=== PATIENT | female | born 1985 | race African-American/Black ===

== ENCOUNTER 2017-02-08 09:52 | Emergency (ER) | payer SELFPAY ==
[~2017-02-08] VITALS: Ht 162.6 cm; Wt 70.4 kg
[~2017-02-08 09:52] MED LIST: ARIP10TA8 PO; BENZ1TAB10 PO; NOCURR
[2017-02-08] MEDS ORDERED: ONDANSETRON HCL 4 MG/2 ML VIAL IVP ONE (11:00)
[2017-02-08 11:01] LABS: EOSINOPHILS # (AUTO) 0.01 K/uL (0.00-0.70); EOSINOPHILS % (AUTO) 0.09 % (1.0-6.0); HEMOGLOBIN 13.8 g/dL (12.0-16.0); LYMPHOCYTES % (AUTO) 7.2 % (22.0-44.0); MEAN CORPUSCULAR HEMOGLOBIN 27.5 pg (26.0-34.0); MEAN CORPUSCULAR HGB CONC 32.8 G/dL (31.0-37.0); MEAN CORPUSCULAR VOLUME 84 fL (80-100); MONOCYTES # (AUTO) 0.5 K/uL (0.1-1.0); MONOCYTES % (AUTO) 3.9 % (2.0-9.0); NEUTROPHILS # (AUTO) 12.1 K/uL (1.8-7.7); PLATELET COUNT (AUTO) 211 K/uL (150-450); RED BLOOD CELL COUNT(AUTO) 5.02 MIL/uL (4.00-5.20); WHITE BLOOD COUNT (AUTO) 13.6 K/uL (4.5-11.0)
[2017-02-08 11:06] LABS: ANION GAP 11 mmol/L (8-16); CALCIUM, TOTAL 9.2 mg/dL (8.8-10.5); CARBON DIOXIDE 27 mmol/L (22-29); CHLORIDE 99 mmol/L (98-107); CREATININE 0.88 mg/dL (0.60-1.30); GLOMERULAR FILTR. RATE CALC > 60 mL/min (>60); POTASSIUM 3.7 mmol/L (3.5-5.1); SODIUM SERUM 137 mmol/L (136-145); UREA NITROGEN, BLOOD 9 mg/dL (7-18)
[2017-02-08 11:07] LABS: NEUTROPHILS % (AUTO) 88.9 % (40.0-70.0)
[2017-02-08 11:12] LABS: ALANINE AMINOTRANSFERASE 20 U/L (12-78); ALBUMIN 3.8 g/dL (3.4-5.0); ASPARTATE AMINOTRANSFERASE 13 U/L (15-37); BILIRUBIN,TOTAL 0.3 mg/dL (0.1-1.0); TOTAL PROTEIN, SERUM 7.8 g/dL (6.4-8.2)
[2017-02-08] MEDS ORDERED: PROMETHAZINE HCL 25 MG TABLET PO ONE (12:45)
[2017-02-08] MEDS ORDERED: LORazepam 2 MG/ML VIAL IVP ONE (13:45)
[2017-02-08] MEDS ORDERED: SODIUM CHLORIDE 0.9% 1,000 ML IV ONE (13:45)
[2017-02-08 14:06] VITALS: BP 93/58
== END 2017-02-08 14:39 | disposition home or self-care (01) ==
LOC: EMS 09:54
DX: R19.7 Diarrhea, unspecified (principal)
CPT/HCPCS: 36415; 74022; 80053; 83690; 84703; 85025; 96361; 96374; 96375; 99285; J2060; J2405; J7030

== ENCOUNTER 2017-02-09 13:04 | Emergency (ER) | payer MEDICAID ==
[~2017-02-09] VITALS: Ht 162.6 cm; Wt 72.7 kg
[2017-02-09 15:10] LABS: BASOPHILS % (AUTO) 0.4 % (0.0-2.0); EOSINOPHILS % (AUTO) 0.4 % (1.0-6.0); HEMATOCRIT 40.4 % (36-46); HEMOGLOBIN 13.2 g/dL (12.0-16.0); LYMPHOCYTES # (AUTO) 1.4 K/uL (1.0-4.8); LYMPHOCYTES % (AUTO) 18.9 % (22.0-44.0); MEAN CORPUSCULAR HEMOGLOBIN 27.6 pg (26.0-34.0); MEAN CORPUSCULAR HGB CONC 32.8 G/dL (31.0-37.0); MEAN CORPUSCULAR VOLUME 84 fL (80-100); MONOCYTES # (AUTO) 0.8 K/uL (0.1-1.0); MONOCYTES % (AUTO) 11.3 % (2.0-9.0); PLATELET COUNT (AUTO) 209 K/uL (150-450); RED CELL DISTRIBUTION WIDTH 16.4 % (11.5-14.5); WHITE BLOOD COUNT (AUTO) 7.2 K/uL (4.5-11.0)
[2017-02-09 15:50] LABS: ALANINE AMINOTRANSFERASE 16 U/L (12-78); ALBUMIN 3.5 g/dL (3.4-5.0); ANION GAP 10 mmol/L (8-16); ASPARTATE AMINOTRANSFERASE 14 U/L (15-37); BILIRUBIN,TOTAL 0.3 mg/dL (0.1-1.0); CALCIUM, TOTAL 8.5 mg/dL (8.8-10.5); CARBON DIOXIDE 25 mmol/L (22-29); CHLORIDE 103 mmol/L (98-107); CREATININE 0.91 mg/dL (0.60-1.30); GLOMERULAR FILTR. RATE CALC > 60 mL/min (>60); POTASSIUM 3.8 mmol/L (3.5-5.1); SODIUM SERUM 138 mmol/L (136-145); TOTAL PROTEIN, SERUM 7.1 g/dL (6.4-8.2); UREA NITROGEN, BLOOD 11 mg/dL (7-18)
[2017-02-09 15:56] LABS: APPEARANCE,URINE CLOUDY (CLEAR); GLUCOSE, URINE (UA) NEGATIVE (NEGATIVE); KETONES,URINE TRACE mg/dL (NEGATIVE); LEUKOCYTE ESTERASE ,URINE NEGATIVE (NEGATIVE); OCCULT BLOOD,URINE NEGATIVE (NEGATIVE); PROTEIN,URINE TRACE (NEGATIVE)
[2017-02-09 16:04] LABS: ADD UA MICROSCOPIC NO
[2017-02-09 17:30] VITALS: BP 109/70
[2017-02-09] MEDS ORDERED: ACETAMINOPHEN 500 MG TABLET PO ONE (17:45)
== END 2017-02-09 17:40 | disposition home or self-care (01) ==
LOC: EMS 13:05
DX: R10.84 Generalized abdominal pain (principal); R11.2 Nausea with vomiting, unspecified; R19.7 Diarrhea, unspecified; Z87.891 Personal history of nicotine dependence
CPT/HCPCS: 99284

== ENCOUNTER 2017-02-12 21:03 | Emergency (ER) | payer MEDICAID ==
[~2017-02-12] VITALS: Ht 162.6 cm; Wt 75.0 kg
[~2017-02-12 21:03] MED LIST changes: -ARIP10TA8 PO; -BENZ1TAB10 PO
[2017-02-12 23:10] LABS: ADD UA MICROSCOPIC NO; APPEARANCE,URINE CLOUDY (CLEAR); GLUCOSE, URINE (UA) NEGATIVE (NEGATIVE); KETONES,URINE TRACE mg/dL (NEGATIVE); LEUKOCYTE ESTERASE ,URINE NEGATIVE (NEGATIVE); OCCULT BLOOD,URINE NEGATIVE (NEGATIVE); PH,URINE 6.5 (5.0-8.0); PROTEIN,URINE NEGATIVE (NEGATIVE)
[2017-02-12 23:11] LABS: BASOPHILS # (AUTO) 0.03 K/uL (0.00-0.20); BASOPHILS % (AUTO) 0.4 % (0.0-2.0); EOSINOPHILS # (AUTO) 0.14 K/uL (0.00-0.70); EOSINOPHILS % (AUTO) 1.54 % (1.0-6.0); HEMATOCRIT 35.9 % (36-46); HEMOGLOBIN 11.8 g/dL (12.0-16.0); LYMPHOCYTES # (AUTO) 3.1 K/uL (1.0-4.8); LYMPHOCYTES % (AUTO) 35.3 % (22.0-44.0); MEAN CORPUSCULAR HEMOGLOBIN 27.4 pg (26.0-34.0); MEAN CORPUSCULAR HGB CONC 32.8 G/dL (31.0-37.0); MEAN CORPUSCULAR VOLUME 84 fL (80-100); MONOCYTES # (AUTO) 1.2 K/uL (0.1-1.0); MONOCYTES % (AUTO) 12.9 % (2.0-9.0); NEUTROPHILS # (AUTO) 4.4 K/uL (1.8-7.7); NEUTROPHILS % (AUTO) 49.9 % (40.0-70.0); PLATELET COUNT (AUTO) 215 K/uL (150-450); WHITE BLOOD COUNT (AUTO) 8.9 K/uL (4.5-11.0)
[2017-02-12 23:21] LABS: ANION GAP 11 mmol/L (8-16); CALCIUM, TOTAL 8.1 mg/dL (8.8-10.5); CARBON DIOXIDE 23 mmol/L (22-29); CHLORIDE 104 mmol/L (98-107); CREATININE 0.89 mg/dL (0.60-1.30); GLOMERULAR FILTR. RATE CALC > 60 mL/min (>60); POTASSIUM 3.6 mmol/L (3.5-5.1); SODIUM SERUM 138 mmol/L (136-145); UREA NITROGEN, BLOOD 17 mg/dL (7-18)
[2017-02-12 23:27] LABS: ALANINE AMINOTRANSFERASE 16 U/L (12-78); ALBUMIN 3.1 g/dL (3.4-5.0); ASPARTATE AMINOTRANSFERASE 10 U/L (15-37); BILIRUBIN,TOTAL 0.2 mg/dL (0.1-1.0); TOTAL PROTEIN, SERUM 6.6 g/dL (6.4-8.2)
[2017-02-12] MEDS ORDERED: DIPHENOXYLATE/ATROP 2.5-0.025 MG TABLET PO ONE (23:30)
[2017-02-12] MEDS ORDERED: ACETAMINOPHEN 500 MG TABLET PO ONE (23:30)
[2017-02-12] MEDS ORDERED: PROMETHAZINE HCL 25 MG TABLET PO ONE (23:30)
[2017-02-13 00:45] VITALS: BP 118/72
[2017-02-14 08:07] LABS: HEPATITIS Bs ANTIGEN SCREEN P Negative (Negative); HEPATITIS C AB SCREEN 0.1 s/co ratio (0.0-0.9)
== END 2017-02-13 00:46 | disposition home or self-care (01) ==
LOC: EMS 21:05
DX: K52.9 Noninfective gastroenteritis and colitis, unspecified (principal); F17.210 Nicotine dependence, cigarettes, uncomplicated
CPT/HCPCS: 80074; 99284

== ENCOUNTER 2019-06-21 09:12 | Inpatient (IN) | payer MEDICAID ==
[~2019-06-21] VITALS: Ht 162.6 cm; Wt 72.7 kg
[2019-06-21] MEDS ORDERED: LORazepam 2 MG TABLET PO PRN (12:30)
[2019-06-21] MEDS ORDERED: HALOPERIDOL 5 MG TABLET PO PRN (12:30)
[2019-06-21] MEDS ORDERED: ZOLPIDEM TARTRATE 10 MG TABLET PO PRN (12:30)
[2019-06-21] MEDS ORDERED: LOPERAMIDE HCL 2 MG CAPSULE PO PRN ×2 (15:45→20:45)
[2019-06-21] MEDS ORDERED: PETROLATUM,WHITE 28 GM JELLY TP PRN ×2 (15:45→20:45)
[2019-06-21] MEDS ORDERED: CloNIDine HCL 0.1 MG TABLET PO PRN ×2 (15:45→20:45)
[2019-06-21] MEDS ORDERED: NICOTINE 14 MG/24 HOUR PATCH TD PRN ×2 (15:45→20:45)
[2019-06-21] MEDS ORDERED: ONDANSETRON HCL 4 MG TABLET PO PRN ×2 (15:45→20:45)
[2019-06-21] MEDS ORDERED: DOCUSATE SODIUM 100 MG CAPSULE PO PRN ×2 (15:45→20:45)
[2019-06-21] MEDS ORDERED: ALBUTEROL SULFATE HFA 90 MCG/PUFF 8 GM INHALER IH PRN ×2 (15:45→20:45)
[2019-06-21] MEDS ORDERED: IBUPROFEN 400 MG TABLET PO PRN ×2 (15:45→20:45)
[2019-06-21] MEDS ORDERED: ACETAMINOPHEN 325 MG TABLET PO PRN ×2 (15:45→20:45)
[2019-06-21] MEDS ORDERED: MAGNESIUM HYDROXIDE SUSPENSION 30 ML UDCUP PO PRN ×2 (15:45→20:45)
[2019-06-21] MEDS ORDERED: MAG HYDROX/AL HYDROX/SIMETH ES 30 ML SUSPENSION UDCUP PO PRN ×2 (15:45→20:45)
[2019-06-21] MEDS ORDERED: HALOPERIDOL LACTATE 5 MG/ML VIAL ONE (16:09)
[2019-06-21] MEDS ORDERED: LORazepam 2 MG/ML VIAL ONE (16:09)
[2019-06-21] MEDS ORDERED: DiphenhydrAMINE HCL 50 MG/ML VIAL ONE (16:09)
[2019-06-21] MEDS ORDERED: HALOPERIDOL LACTATE 5 MG/ML VIAL IM ONE (16:15)
[2019-06-21] MEDS ORDERED: LORazepam 2 MG/ML VIAL IM ONE (16:15)
[2019-06-21] MEDS ORDERED: DiphenhydrAMINE HCL 50 MG/ML VIAL IM ONE (16:15)
[2019-06-21] MEDS ORDERED: GuaiFENesin/D-METHORPHAN [SUGAR-FREE] 200-20MG/10 ML SYRUP UDCUP PO PRN (20:45)
[2019-06-22] MEDS ORDERED: INFLUENZA VIRUS VACCINE QVS 2019-20 (3YR+)/PF 60 MCG/0.5 ML SYRINGE IM ONE (00:15)
[2019-06-22 05:16] VITALS: BP 125/92
[2019-06-22] MEDS ORDERED: DiphenhydrAMINE HCL 50 MG/ML VIAL IM ONE (09:15)
[2019-06-22 16:29] VITALS: BP 133/76
[2019-06-22] MEDS: DiphenhydrAMINE HCL 50 MG/ML VIAL IM PRN (17:03)
[2019-06-22] MEDS ORDERED: OLANZapine 5 MG TABLET PO SCH (21:00)
[2019-06-23] MEDS: DiphenhydrAMINE HCL 50 MG/ML VIAL IM PRN ×3 (04:33→18:25)
[2019-06-23 04:46] VITALS: BP 120/79
[2019-06-23 08:00] VITALS: BP 112/72
[2019-06-23] MEDS: GuaiFENesin/D-METHORPHAN [SUGAR-FREE] 200-20MG/10 ML SYRUP UDCUP PO PRN ×2 (10:11→21:54)
[2019-06-24 08:15] VITALS: BP 129/79
[2019-06-24] MEDS: DiphenhydrAMINE HCL 50 MG/ML VIAL IM PRN (08:21)
== END 2019-06-24 14:48 | disposition home or self-care (01) | DRG 750 ==
LOC: EMS 09:13 → B3A 13:38
PROVIDERS: ADMIT Psychiatry & Neurology Child & Adolescent Psychiatry; ATTEND Psychiatry & Neurology Child & Adolescent Psychiatry
DX: F25.9 Schizoaffective disorder, unspecified (principal); Z91.14 Patient's other noncompliance with medication regimen; D64.9 Anemia, unspecified; F10.10 Alcohol abuse, uncomplicated; F41.9 Anxiety disorder, unspecified; F15.90 Other stimulant use, unspecified, uncomplicated; G47.00 Insomnia, unspecified; F31.9 Bipolar disorder, unspecified; Z87.891 Personal history of nicotine dependence; Z90.5 Acquired absence of kidney
CPT/HCPCS: J1200; J1630; J2060

== ENCOUNTER 2019-06-26 19:25 | Inpatient (IN) | payer MEDICAID ==
[~2019-06-26] VITALS: Ht 162.6 cm; Wt 78.0 kg
[2019-06-26 21:01] LABS: BASOPHILS % (AUTO) 0.8 % (0.0-2.0); EOSINOPHILS % (AUTO) 0.5 % (1.0-6.0); HEMATOCRIT 35.8 % (36-46); HEMOGLOBIN 11.6 g/dL (12.0-16.0); LYMPHOCYTES # (AUTO) 2.2 K/uL (1.0-4.8); MEAN CORPUSCULAR HEMOGLOBIN 26.4 pg (26.0-34.0); MEAN CORPUSCULAR HGB CONC 32.4 G/dL (31.0-37.0); MEAN CORPUSCULAR VOLUME 82 fL (80-100); MONOCYTES # (AUTO) 0.8 K/uL (0.1-1.0); MONOCYTES % (AUTO) 6.9 % (2.0-9.0); NEUTROPHILS # (AUTO) 8.6 K/uL (1.8-7.7); NEUTROPHILS % (AUTO) 72.8 % (40.0-70.0); PLATELET COUNT (AUTO) 279 K/uL (150-450); RED BLOOD CELL COUNT(AUTO) 4.39 MIL/uL (4.00-5.20); RED CELL DISTRIBUTION WIDTH 17.4 % (11.5-14.5)
[2019-06-26 21:12] LABS: ANION GAP 9 mmol/L (8-16); CALCIUM, TOTAL 8.4 mg/dL (8.8-10.5); CARBON DIOXIDE 28 mmol/L (22-29); CHLORIDE 98 mmol/L (98-107); GLOMERULAR FILTR. RATE CALC > 60 mL/min (>60); GLUCOSE,RANDOM 128 mg/dL (70-110); POTASSIUM 3.2 mmol/L (3.5-5.1); SODIUM SERUM 135 mmol/L (136-145); UREA NITROGEN, BLOOD 21 mg/dL (7-18)
[2019-06-26 21:23] LABS: ALANINE AMINOTRANSFERASE 48 U/L (12-78); ALBUMIN 3.3 g/dL (3.4-5.0); ALKALINE PHOSPHATASE 60 U/L (46-116); ASPARTATE AMINOTRANSFERASE 60 U/L (15-37); BILIRUBIN,TOTAL 0.4 mg/dL (0.1-1.0); TOTAL PROTEIN, SERUM 6.8 g/dL (6.4-8.2)
[2019-06-27] MEDS ORDERED: DiphenhydrAMINE HCL 25 MG CAPSULE PO ONE
[2019-06-27] MEDS ORDERED: LORazepam 2 MG TABLET PO PRN (02:45)
[2019-06-27] MEDS ORDERED: HALOPERIDOL 5 MG TABLET PO PRN (02:45)
[2019-06-27] MEDS ORDERED: AMOX TR/POT CLAV 875 MG/125 MG TABLET PO ONE (04:30)
[2019-06-27] MEDS ORDERED: POTASSIUM CHLORIDE 20 MEQ ER TABLET PO ONE (04:30)
[2019-06-27 05:48] VITALS: BP 113/73
[2019-06-27] MEDS ORDERED: INFLUENZA VIRUS VACCINE QVS 2019-20 (3YR+)/PF 60 MCG/0.5 ML SYRINGE IM ONE (06:30)
[2019-06-27] MEDS ORDERED: ONDANSETRON HCL 4 MG TABLET PO PRN (06:30)
[2019-06-27] MEDS ORDERED: PETROLATUM,WHITE 28 GM JELLY TP PRN (06:30)
[2019-06-27] MEDS ORDERED: ACETAMINOPHEN 325 MG TABLET PO PRN (06:30)
[2019-06-27] MEDS ORDERED: IBUPROFEN 400 MG TABLET PO PRN (06:30)
[2019-06-27] MEDS ORDERED: MAGNESIUM HYDROXIDE SUSPENSION 30 ML UDCUP PO PRN (06:30)
[2019-06-27] MEDS ORDERED: GuaiFENesin/D-METHORPHAN [SUGAR-FREE] 200-20MG/10 ML SYRUP UDCUP PO PRN (06:30)
[2019-06-27] MEDS ORDERED: ALBUTEROL SULFATE HFA 90 MCG/PUFF 8 GM INHALER IH PRN (06:30)
[2019-06-27] MEDS ORDERED: DOCUSATE SODIUM 100 MG CAPSULE PO PRN (06:30)
[2019-06-27] MEDS ORDERED: NICOTINE 14 MG/24 HOUR PATCH TD PRN (06:30)
[2019-06-27] MEDS ORDERED: CloNIDine HCL 0.1 MG TABLET PO PRN (06:30)
[2019-06-27] MEDS ORDERED: MAG HYDROX/AL HYDROX/SIMETH ES 30 ML SUSPENSION UDCUP PO PRN (06:30)
[2019-06-27] MEDS ORDERED: LOPERAMIDE HCL 2 MG CAPSULE PO PRN (06:30)
[2019-06-27] MEDS: OLANZapine 5 MG TABLET PO SCH (21:00)
[2019-06-28 05:03] VITALS: BP 105/73
[2019-06-28] MEDS: OLANZapine 5 MG TABLET PO SCH ×2 (09:00→20:26)
[2019-06-28] MEDS: AMOX TR/POT CLAV 875 MG/125 MG TABLET PO SCH ×2 (09:53→16:47)
[2019-06-28 16:00] VITALS: BP 132/87
[2019-06-28] MEDS: ZOLPIDEM TARTRATE 10 MG TABLET PO PRN (23:55)
[2019-06-29 06:39] VITALS: BP 121/68
[2019-06-29 08:22] VITALS: BP 118/68
[2019-06-29] MEDS: OLANZapine 5 MG TABLET PO SCH ×2 (09:00→20:30)
[2019-06-29] MEDS: AMOX TR/POT CLAV 875 MG/125 MG TABLET PO SCH ×2 (09:29→16:52)
[2019-06-29] MEDS ORDERED: LORazepam 2 MG/ML VIAL ONE (12:59)
[2019-06-29] MEDS ORDERED: DiphenhydrAMINE HCL 50 MG/ML VIAL ONE (13:00)
[2019-06-29] MEDS ORDERED: HALOPERIDOL LACTATE 5 MG/ML VIAL ONE (13:00)
[2019-06-29] MEDS ORDERED: HALOPERIDOL LACTATE 5 MG/ML VIAL IM ONE (13:40)
[2019-06-29] MEDS ORDERED: LORazepam 2 MG/ML VIAL IM ONE (13:40)
[2019-06-29] MEDS ORDERED: DiphenhydrAMINE HCL 50 MG/ML VIAL IM ONE (13:40)
[2019-06-29 16:15] VITALS: BP 100/70
[2019-06-29] MEDS: DiphenhydrAMINE HCL 50 MG/ML VIAL IM PRN (16:52)
[2019-06-29] MEDS: ZOLPIDEM TARTRATE 10 MG TABLET PO PRN (20:29)
[2019-06-30] MEDS: DiphenhydrAMINE HCL 50 MG/ML VIAL IM PRN ×2 (01:19→11:49)
[2019-06-30 05:11] VITALS: BP 107/75
[2019-06-30 08:13] VITALS: BP 110/64
[2019-06-30] MEDS: AMOX TR/POT CLAV 875 MG/125 MG TABLET PO SCH ×2 (09:00→16:16)
[2019-06-30] MEDS: OLANZapine 5 MG TABLET PO SCH ×2 (09:00→20:58)
[2019-06-30 16:12] VITALS: BP 137/69
[2019-07-01 08:21] VITALS: BP 120/71
[2019-07-01 08:29] LABS: BASOPHILS % (AUTO) 0.8 % (0.0-2.0); EOSINOPHILS % (AUTO) 2.4 % (1.0-6.0); HEMATOCRIT 42.5 % (36-46); HEMOGLOBIN 13.6 g/dL (12.0-16.0); LYMPHOCYTES # (AUTO) 2.9 K/uL (1.0-4.8); LYMPHOCYTES % (AUTO) 33.5 % (22.0-44.0); MEAN CORPUSCULAR HEMOGLOBIN 26.4 pg (26.0-34.0); MEAN CORPUSCULAR VOLUME 83 fL (80-100); MONOCYTES # (AUTO) 0.7 K/uL (0.1-1.0); MONOCYTES % (AUTO) 7.9 % (2.0-9.0); NEUTROPHILS # (AUTO) 4.8 K/uL (1.8-7.7); NEUTROPHILS % (AUTO) 55.4 % (40.0-70.0); PLATELET COUNT (AUTO) 300 K/uL (150-450); RED BLOOD CELL COUNT(AUTO) 5.15 MIL/uL (4.00-5.20); RED CELL DISTRIBUTION WIDTH 17.9 % (11.5-14.5)
[2019-07-01 08:30] LABS: HEMOGLOBIN A1C 5.3 % (4.5-6.2)
[2019-07-01] MEDS: AMOX TR/POT CLAV 875 MG/125 MG TABLET PO SCH ×2 (08:42→17:00)
[2019-07-01] MEDS: OLANZapine 5 MG TABLET PO SCH (08:43)
[2019-07-01 08:44] LABS: ALANINE AMINOTRANSFERASE 38 U/L (12-78); ALBUMIN 3.2 g/dL (3.4-5.0); ALKALINE PHOSPHATASE 65 U/L (46-116); ANION GAP 3 mmol/L (8-16); ASPARTATE AMINOTRANSFERASE 30 U/L (15-37); BILIRUBIN,TOTAL 0.2 mg/dL (0.1-1.0); CALCIUM, TOTAL 8.7 mg/dL (8.8-10.5); CARBON DIOXIDE 32 mmol/L (22-29); CHLORIDE 102 mmol/L (98-107); CHOL/HDL RATIO 3.8 (3.9-5.7); CHOLESTEROL 175 mg/dL (131-200); CREATININE 0.97 mg/dL (0.60-1.30); GLOMERULAR FILTR. RATE CALC > 60 mL/min (>60); GLUCOSE,RANDOM 117 mg/dL (70-110); HDL CHOLESTEROL 46 mg/dL (40-60); LDL CHOL (CALC.) 111 mg/dL (0-130); POTASSIUM 5.4 mmol/L (3.5-5.1); SODIUM SERUM 137 mmol/L (136-145); THYROID STIMULATING HORMONE 2.15 uIU/mL (0.36-3.74); TOTAL PROTEIN, SERUM 6.3 g/dL (6.4-8.2); TRIGLYCERIDES 91 mg/dL (15-150); UREA NITROGEN, BLOOD 17 mg/dL (7-18)
[2019-07-01] MEDS ORDERED: SODIUM POLYSTYRENE SULFONATE 15 GM/60 ML SUSPENSION BOTTLE PO ONE (10:45)
[2019-07-01] MEDS ORDERED: OLAN5TAB2 PO (16:06)
[2019-07-01] MEDS ORDERED: AMOX1TAB16 PO (16:06)
== END 2019-07-01 18:00 | disposition home or self-care (01) | DRG 750 ==
LOC: EMS 19:27 → B3A 06-27 03:47
PROVIDERS: ADMIT Psychiatry & Neurology Child & Adolescent Psychiatry; ATTEND Psychiatry & Neurology Child & Adolescent Psychiatry
DX: F25.1 Schizoaffective disorder, depressive type (principal); Z59.0 Homelessness; D64.9 Anemia, unspecified; F15.90 Other stimulant use, unspecified, uncomplicated; F41.9 Anxiety disorder, unspecified; D72.829 Elevated white blood cell count, unspecified; E87.6 Hypokalemia; Z87.891 Personal history of nicotine dependence; Z90.5 Acquired absence of kidney
CPT/HCPCS: 83036; 84443; 87081; G0480; J1200; J1630; J2060

== ENCOUNTER 2019-09-03 19:15 | Inpatient (IN) | payer MEDICAID ==
[~2019-09-03] VITALS: Ht 167.6 cm; Wt 72.7 kg
[~2019-09-03 19:15] MED LIST changes: +AMOX1TAB16 PO; -NOCURR; +OLAN5TAB2 PO
[2019-09-03 22:47] LABS: BASOPHILS % (AUTO) 0.9 % (0.0-2.0); EOSINOPHILS % (AUTO) 1.2 % (1.0-6.0); HEMATOCRIT 38.8 % (36-46); HEMOGLOBIN 12.3 g/dL (12.0-16.0); LYMPHOCYTES # (AUTO) 3.7 K/uL (1.0-4.8); LYMPHOCYTES % (AUTO) 33.7 % (22.0-44.0); MEAN CORPUSCULAR HGB CONC 31.5 G/dL (31.0-37.0); MEAN CORPUSCULAR VOLUME 82 fL (80-100); MONOCYTES # (AUTO) 1.4 K/uL (0.1-1.0); MONOCYTES % (AUTO) 13.4 % (2.0-9.0); NEUTROPHILS # (AUTO) 5.5 K/uL (1.8-7.7); NEUTROPHILS % (AUTO) 50.8 % (40.0-70.0); PLATELET COUNT (AUTO) 288 K/uL (150-450); RED BLOOD CELL COUNT(AUTO) 4.71 MIL/uL (4.00-5.20); RED CELL DISTRIBUTION WIDTH 16.9 % (11.5-14.5)
[2019-09-03 22:56] LABS: ANION GAP 9 mmol/L (8-16); CARBON DIOXIDE 27 mmol/L (22-29); CHLORIDE 98 mmol/L (98-107); GLOMERULAR FILTR. RATE CALC > 60 mL/min (>60); GLUCOSE,RANDOM 92 mg/dL (70-110); POTASSIUM 3.5 mmol/L (3.5-5.1); SODIUM SERUM 134 mmol/L (136-145); UREA NITROGEN, BLOOD 20 mg/dL (7-18)
[2019-09-03 23:06] LABS: AMPHET/METH SCREEN,URINE POSITIVE (NEGATIVE); BARBITURATE SCREEN, URINE NEGATIVE (NEGATIVE); BENZODIAZEPINES SCREEN,URINE NEGATIVE (NEGATIVE); CANNABINOID SCREEN,URINE POSITIVE (NEGATIVE); COCAINE SCREEN,URINE POSITIVE (NEGATIVE); METHADONE SCREEN, URINE NEGATIVE (NEGATIVE); OPIATE SCREEN,URINE NEGATIVE (NEGATIVE); PHENCYCLIDINE SCREEN,URINE NEGATIVE (NEGATIVE)
[2019-09-03 23:08] LABS: ALANINE AMINOTRANSFERASE 50 U/L (12-78); ALKALINE PHOSPHATASE 58 U/L (46-116); ASPARTATE AMINOTRANSFERASE 56 U/L (15-37); BILIRUBIN,TOTAL 0.5 mg/dL (0.1-1.0); HCG,QUANTITATIVE < 1 mIU/mL (0-6); TOTAL PROTEIN, SERUM 7.6 g/dL (6.4-8.2)
[2019-09-03] MEDS ORDERED: OLANZapine 5 MG TABLET PO ONE (23:15)
[2019-09-03] MEDS ORDERED: DiphenhydrAMINE HCL 25 MG CAPSULE PO ONE (23:15)
[2019-09-03] MEDS ORDERED: LORazepam 2 MG TABLET PO ONE (23:15)
[2019-09-04] VITALS (10 sets, daily range): BP systolic 97–127; BP diastolic 43–81
[2019-09-04] MEDS ORDERED: LORazepam 1 MG TABLET PO PRN (00:45)
[2019-09-04] MEDS ORDERED: LORazepam 2 MG TABLET PO PRN (00:45)
[2019-09-04] MEDS ORDERED: OLANZapine 5 MG RAPDIS TABLET PO PRN (00:45)
[2019-09-04] MEDS ORDERED: IBUPROFEN 600 MG TABLET PO PRN (13:15)
[2019-09-04] MEDS ORDERED: MAGNESIUM HYDROXIDE SUSPENSION 30 ML UDCUP PO PRN (13:15)
[2019-09-04] MEDS ORDERED: ONDANSETRON HCL 4 MG TABLET PO PRN (13:15)
[2019-09-04] MEDS ORDERED: BACITRACIN 28.4 GM OINTMENT TP PRN (13:15)
[2019-09-04] MEDS ORDERED: BENZOCAINE/MENTHOL LOZENGE MM PRN (13:15)
[2019-09-04] MEDS ORDERED: MAG HYDROX/AL HYDROX/SIMETH ES 30 ML SUSPENSION UDCUP PO PRN (13:15)
[2019-09-04] MEDS ORDERED: PETROLATUM,WHITE 28 GM JELLY TP PRN (13:15)
[2019-09-04] MEDS ORDERED: DOCUSATE SODIUM 100 MG CAPSULE PO PRN (13:15)
[2019-09-04] MEDS ORDERED: ACETAMINOPHEN 325 MG TABLET PO PRN (13:15)
[2019-09-04] MEDS ORDERED: LOPERAMIDE HCL 2 MG CAPSULE PO PRN (13:15)
[2019-09-04] MEDS ORDERED: ALBUTEROL SULFATE HFA 90 MCG/PUFF 8 GM INHALER IH PRN (13:15)
[2019-09-04] MEDS ORDERED: CloNIDine HCL 0.1 MG TABLET PO PRN (13:15)
[2019-09-04] MEDS ORDERED: OMEPRAZOLE 20 MG CAPSULE PO PRN (13:15)
[2019-09-04] MEDS: DiphenhydrAMINE HCL 25 MG CAPSULE PO SCH (21:12)
[2019-09-04] MEDS: OLANZapine 7.5 MG TABLET PO SCH (21:13)
[2019-09-04] MEDS: LORazepam 1 MG TABLET PO PRN (21:13)
[2019-09-05 08:18] LABS: CHOL/HDL RATIO 3.2 (3.9-5.7)
[2019-09-05] MEDS: NICOTINE 21 MG/24 HOUR PATCH TD SCH (08:21)
[2019-09-05 12:00] VITALS: BP 112/73
[2019-09-05 16:00] VITALS: BP 114/80
[2019-09-05 17:35] VITALS: BP 114/80
[2019-09-05] MEDS: DiphenhydrAMINE HCL 25 MG CAPSULE PO SCH (20:24)
[2019-09-05] MEDS: OLANZapine 7.5 MG TABLET PO SCH (20:26)
[2019-09-06 03:18] VITALS: BP 110/75
[2019-09-06 05:24] VITALS: BP 121/68
[2019-09-06] MEDS: NICOTINE 21 MG/24 HOUR PATCH TD SCH (09:00)
[2019-09-06] MEDS: LORazepam 1 MG TABLET PO PRN (18:30)
[2019-09-06] MEDS: DiphenhydrAMINE HCL 25 MG CAPSULE PO SCH (20:20)
[2019-09-06] MEDS: OLANZapine 7.5 MG TABLET PO SCH (20:20)
[2019-09-07 00:25] VITALS: BP 118/76
[2019-09-07 07:19] VITALS: BP 118/76
[2019-09-07] MEDS: NICOTINE 21 MG/24 HOUR PATCH TD SCH (09:00)
[2019-09-07] MEDS ORDERED: DIPH25CA85 PO (11:47)
[2019-09-07] MEDS ORDERED: OLAN7.5T2 PO (11:47)
== END 2019-09-07 15:00 | disposition home or self-care (01) | DRG 750 ==
LOC: EMS 19:15 → B3A 09-04 01:00
PROVIDERS: ADMIT Psychiatry & Neurology Psychiatry; ATTEND Psychiatry & Neurology Psychiatry
DX: F20.0 Paranoid schizophrenia (principal); E87.1 Hypo-osmolality and hyponatremia; F12.90 Cannabis use, unspecified, uncomplicated; F17.200 Nicotine dependence, unspecified, uncomplicated; F19.10 Other psychoactive substance abuse, uncomplicated; K59.00 Constipation, unspecified; F15.10 Other stimulant abuse, uncomplicated; F31.9 Bipolar disorder, unspecified; F14.10 Cocaine abuse, uncomplicated; F10.10 Alcohol abuse, uncomplicated; Y90.9 Presence of alcohol in blood, level not specified; Z88.8 Allergy status to other drugs, medicaments and biological substances
CPT/HCPCS: G0480

== ENCOUNTER 2019-11-05 14:31 | Emergency (ER) | payer MEDICAID ==
[~2019-11-05] VITALS: Ht 162.6 cm; Wt 70.5 kg
[~2019-11-05 14:31] MED LIST changes: -AMOX1TAB16 PO; +DIPH25CA85 PO; -OLAN5TAB2 PO; +OLAN7.5T2 PO
[2019-11-05 15:44] LABS: EOSINOPHILS % (AUTO) 1.1 % (1.0-6.0); HEMATOCRIT 39.8 % (36-46); HEMOGLOBIN 12.9 g/dL (12.0-16.0); LYMPHOCYTES % (AUTO) 27.7 % (22.0-44.0); MEAN CORPUSCULAR HEMOGLOBIN 27.4 pg (26.0-34.0); MEAN CORPUSCULAR HGB CONC 32.4 G/dL (31.0-37.0); MEAN CORPUSCULAR VOLUME 84 fL (80-100); MONOCYTES # (AUTO) 0.5 K/uL (0.1-1.0); MONOCYTES % (AUTO) 7.5 % (2.0-9.0); NEUTROPHILS # (AUTO) 4.5 K/uL (1.8-7.7); NEUTROPHILS % (AUTO) 62.7 % (40.0-70.0); PLATELET COUNT (AUTO) 216 K/uL (150-450); RED BLOOD CELL COUNT(AUTO) 4.71 MIL/uL (4.00-5.20); RED CELL DISTRIBUTION WIDTH 17.2 % (11.5-14.5)
[2019-11-05 15:56] LABS: ANION GAP 5 mmol/L (8-16); CALCIUM, TOTAL 8.4 mg/dL (8.8-10.5); CARBON DIOXIDE 29 mmol/L (22-29); CHLORIDE 105 mmol/L (98-107); CREATININE 0.94 mg/dL (0.60-1.30); GLOMERULAR FILTR. RATE CALC > 60 mL/min (>60); GLUCOSE,RANDOM 96 mg/dL (70-110); POTASSIUM 3.9 mmol/L (3.5-5.1); SODIUM SERUM 139 mmol/L (136-145); UREA NITROGEN, BLOOD 13 mg/dL (7-18)
[2019-11-05 16:08] LABS: ALANINE AMINOTRANSFERASE 43 U/L (12-78); ALBUMIN 3.6 g/dL (3.4-5.0); ALKALINE PHOSPHATASE 100 U/L (46-116); ASPARTATE AMINOTRANSFERASE 42 U/L (15-37); BILIRUBIN,TOTAL 0.2 mg/dL (0.1-1.0); HCG,QUANTITATIVE 1 mIU/mL (0-6); TOTAL PROTEIN, SERUM 7.2 g/dL (6.4-8.2)
[2019-11-05 16:20] VITALS: BP 120/76
[2019-11-05 16:23] LABS: AMPHET/METH SCREEN,URINE POSITIVE (NEGATIVE); BARBITURATE SCREEN, URINE NEGATIVE (NEGATIVE); BENZODIAZEPINES SCREEN,URINE NEGATIVE (NEGATIVE); CANNABINOID SCREEN,URINE POSITIVE (NEGATIVE); COCAINE SCREEN,URINE POSITIVE (NEGATIVE); METHADONE SCREEN, URINE NEGATIVE (NEGATIVE); OPIATE SCREEN,URINE NEGATIVE (NEGATIVE); PHENCYCLIDINE SCREEN,URINE POSITIVE (NEGATIVE)
== END 2019-11-05 16:40 | disposition home or self-care (01) ==
LOC: EMS 14:38
DX: N93.9 Abnormal uterine and vaginal bleeding, unspecified (principal); F17.210 Nicotine dependence, cigarettes, uncomplicated; F31.9 Bipolar disorder, unspecified; F15.90 Other stimulant use, unspecified, uncomplicated; Z79.899 Other long term (current) drug therapy; Z88.0 Allergy status to penicillin
CPT/HCPCS: 36415; 80053; 80307; 84702; 85025; 99283; G0480